=== PATIENT | female | born 1990 | race Caucasian/White ===

== ENCOUNTER 2017-08-11 03:02 | Emergency (ER) | payer SELFPAY ==
[~2017-08-11] VITALS: Ht 157.5 cm; Wt 131.5 kg
[2017-08-11 03:06] VITALS: BP 122/63
[2017-08-11 04:30] VITALS: BP 122/63
== END 2017-08-11 04:30 | disposition home or self-care (01) ==
LOC: MED 03:02
DX: R09.1 Pleurisy (principal); J06.9 Acute upper respiratory infection, unspecified; E66.01 Morbid (severe) obesity due to excess calories; Z90.49 Acquired absence of other specified parts of digestive tract
CPT/HCPCS: 71010; 81025; 93005; 99283

== ENCOUNTER 2018-10-11 20:53 | Emergency (ER) | payer BC ==
[~2018-10-11] VITALS: Ht 157.5 cm; Wt 119.3 kg
[2018-10-11 21:08] VITALS: BP 123/58
[2018-10-11] MEDS ORDERED: SYN.075 PO (21:14)
[2018-10-11] MEDS ORDERED: WARF2.5T77 PO (21:14)
[2018-10-12] MEDS ORDERED: KETOROLAC 30 MG/ML VIAL IVP ONE (00:50)
[2018-10-12] MEDS ORDERED: NACL 0.9% 1,000 ML IV ONE (00:50)
[2018-10-12 01:28] LABS: BASOPHILS # (AUTO) 0.1 K/uL (0.00-0.22); BASOPHILS % (AUTO) 0.6 % (0.0-2.0); EOSINOPHILS # (AUTO) 0.1 K/uL (0-0.4); EOSINOPHILS % (AUTO) 1.2 % (0.0-4.0); HEMATOCRIT 37.4 % (36-48); HEMOGLOBIN 12.2 g/dL (12.0-16.0); LYMPHOCYTES # (AUTO) 4.5 K/uL (2.5-16.5); LYMPHOCYTES % (AUTO) 45.9 % (20.5-51.1); MEAN CORPUSCULAR HEMOGLOBIN 27 pg (27-31); MEAN CORPUSCULAR HGB CONC 33 g/dL (33-37); MEAN CORPUSCULAR VOLUME 82.5 fL (80-94); MONOCYTES # (AUTO) 0.8 K/uL (0.8-1.0); MONOCYTES % (AUTO) 8.5 % (1.7-9.3); NEUTROPHILS # (AUTO) 4.3 K/uL (1.8-7.7); NEUTROPHILS % (AUTO) 43.8 % (42.2-75.2); PLATELET COUNT (AUTO) 324 K/uL (140-450); RED BLOOD CELL COUNT(AUTO) 4.53 MIL/uL (4.20-5.40); RED CELL DISTRIBUTION WIDTH 14.1 % (11.6-13.7); WHITE BLOOD COUNT (AUTO) 9.9 K/uL (4.8-10.8)
[2018-10-12 01:39] LABS: APPEARANCE,URINE CLOUDY (CLEAR); BILIRUBIN,URINE 1+ (NEGATIVE); BLOOD, URINE 3+ (NEGATIVE); COLOR,URINE RED (YELLOW); LEUKOCYTE ESTERASE ,URINE NEGATIVE (NEGATIVE); NITRITE, URINE NEGATIVE (NEGATIVE); UGLUCOSE NEGATIVE (NEGATIVE)
[2018-10-12 01:40] LABS: ANION GAP 18.4 (8-16); CARBON DIOXIDE 21.4 mmol/L (21-32); CREATININE 0.8 mg/dL (0.6-1.3); POTASSIUM 3.8 mmol/L (3.5-5.1)
[2018-10-12 01:43] LABS: RBC,URINE TOO NUMEROUS TO COUN /HPF (0-5)
[2018-10-12 01:45] LABS: WBC,URINE 0-5 (RARE) /HPF (0-5)
[2018-10-12 01:47] LABS: ALBUMIN 3.6 g/dL (3.4-5.0); TOTAL BILIRUBIN 0.4 mg/dL (0.0-1.0)
[2018-10-12] MEDS ORDERED: cefTRIAXone 2,000 MG in DEXTROSE 5% 100 ML IV ONE (01:50)
[2018-10-12] MEDS ORDERED: cefTRIAXone 2,000 MG VIAL ONE (02:04)
[2018-10-12 03:10] VITALS: BP 123/58
== END 2018-10-12 03:10 | disposition home or self-care (01) ==
LOC: MED 20:53
DX: N39.0 Urinary tract infection, site not specified (principal); E66.01 Morbid (severe) obesity due to excess calories; Z79.899 Other long term (current) drug therapy; Z90.49 Acquired absence of other specified parts of digestive tract; Z68.42 Body mass index [BMI] 45.0-49.9, adult
CPT/HCPCS: 36415; 74176; 80053; 81001; 81002; 81025; 85025; 96365; 96375; 99284; J0696; J1885; J7030

== ENCOUNTER 2018-10-30 05:45 | Emergency (ER) | payer BC ==
[~2018-10-30] VITALS: Ht 157.5 cm; Wt 113.4 kg
[~2018-10-30 05:45] MED LIST: SYN.075 PO; WARF2.5T77 PO
[2018-10-30 05:48] VITALS: BP 112/64
--- NOTE | 2018-10-30 05:49 | NUR ---
PT AMBULATED TO BED #5
--- NOTE | 2018-10-30 05:50 | NUR ---
PATIENT PRESENTS ER WITH C/O NAUSEA, PALPUTATIONS X 1 DAY. PT STATED THAT SHE FELT LIKE SHE WAS GOING TO FAINT. PT FELT LIGHT HEADED AND DIZZY. PT STATED SHE WAS VOMITING ON SUNDAY. PATIENT STATES PAIN OF 0/10 AT THIS TIME; VSS; PATIENT POSITIONED FOR COMFORT; HOB ELEVATED; BEDRAILS UP X2; BED DOWN. ER MD MADE AWARE OF PT STATUS.
[2018-10-30] MEDS ORDERED: NACL 0.9% 1,000 ML IV ONE (06:20)
--- NOTE | 2018-10-30 06:30 | NUR ---
LABS WERE DRAWN AND SENT TO LAB
[2018-10-30 06:56] LABS: BASOPHILS % (AUTO) 0.5 % (0.0-2.0); EOSINOPHILS # (AUTO) 0.1 K/uL (0-0.4); EOSINOPHILS % (AUTO) 2.8 % (0.0-4.0); HEMATOCRIT 39.8 % (36-48); HEMOGLOBIN 12.6 g/dL (12.0-16.0); LYMPHOCYTES # (AUTO) 2.4 K/uL (2.5-16.5); LYMPHOCYTES % (AUTO) 47.5 % (20.5-51.1); MEAN CORPUSCULAR HEMOGLOBIN 27 pg (27-31); MEAN CORPUSCULAR HGB CONC 32 g/dL (33-37); MEAN CORPUSCULAR VOLUME 84.8 fL (80-94); MONOCYTES # (AUTO) 0.5 K/uL (0.8-1.0); NEUTROPHILS # (AUTO) 1.9 K/uL (1.8-7.7); NEUTROPHILS % (AUTO) 38.2 % (42.2-75.2); PLATELET COUNT (AUTO) 189 K/uL (140-450); RED BLOOD CELL COUNT(AUTO) 4.69 MIL/uL (4.20-5.40); RED CELL DISTRIBUTION WIDTH 15.9 % (11.6-13.7)
[2018-10-30 07:05] LABS: ANION GAP 11.3 (8-16); CREATININE 0.7 mg/dL (0.6-1.3); POTASSIUM 3.3 mmol/L (3.5-5.1)
--- NOTE | 2018-10-30 07:08 | NUR ---
GAVE REPORT TO MARGARITO CLAROS, PT VSS.
[2018-10-30 07:39] LABS: BILIRUBIN,URINE 2+ (NEGATIVE); BLOOD, URINE NEGATIVE (NEGATIVE); COLOR,URINE YELLOW (YELLOW); LEUKOCYTE ESTERASE ,URINE 2+ (NEGATIVE); NITRITE, URINE NEGATIVE (NEGATIVE); UGLUCOSE NEGATIVE (NEGATIVE)
[2018-10-30 07:42] LABS: RBC,URINE 0-5 (RARE) /HPF (0-5)
[2018-10-30 07:44] LABS: APPEARANCE,URINE HAZY (CLEAR)
--- NOTE | 2018-10-30 07:55 | NUR ---
ALL RESULTS BACK AND NOTED BY ERMD AND FOR D/C.
[2018-10-30] MEDS ORDERED: cefTRIAXone 1,000 MG in LIDOCAINE MPF 1% - 5 mL VIAL 2.1 ML IM ONE (08:00)
[2018-10-30 08:30] VITALS: BP 121/73
--- NOTE | 2018-10-30 08:30 | NUR ---
Patient discharged with v/s stable. Written and verbal after care instructions given and explained. Patient alert, oriented and verbalized understanding of instructions. Ambulatory with steady gait. All questions addressed prior to discharge. ID band removed. Patient advised to follow up with PMD. Rx of KEFLEX 500MG given. Patient educated on indication of medication including possible reaction and side effects. Opportunity to ask questions provided and answered.
[2018-11-01 06:14] LABS: CHLAMYDIA TRACHOMATIS AMP DNA Negative (Negative)
== END 2018-10-30 08:30 | disposition home or self-care (01) ==
LOC: MED 05:45
DX: N39.0 Urinary tract infection, site not specified (principal); R42 Dizziness and giddiness; R00.2 Palpitations; Z79.899 Other long term (current) drug therapy
CPT/HCPCS: 36415; 80048; 81001; 85025; 87086; 87491; 93005; 96372; 99284; J0696; J2001; J7030; 96360